=== PATIENT | female | born 2000 | race Two or more races ===

== ENCOUNTER 2024-08-12 16:04 | Emergency (ER) | payer BC ==
[~2024-08-12] VITALS: Ht 162.6 cm; Wt 65.0 kg
[2024-08-12 16:06] VITALS: BP 159/82; PULSE 60; RESP 18; TEMP 36.9; O2SAT 99
[2024-08-12] MEDS ORDERED: LACTATED RINGERS 1,000 ML IV SCH (16:45)
[2024-08-12] MEDS ORDERED: METOCLOPRAMIDE HCL 10MG/2ML VIAL IV ONE (16:45)
== END 2024-08-12 20:00 | disposition left against medical advice (07) ==
LOC: ER 16:04
DX: K92.0 Hematemesis (principal); R19.7 Diarrhea, unspecified; G40.909 Epilepsy, unspecified, not intractable, without status epilepticus
CPT/HCPCS: 99291

== ENCOUNTER 2024-08-22 08:05 | Emergency (ER) | payer BC ==
[~2024-08-22] VITALS: Ht 162.6 cm; Wt 82.0 kg
[2024-08-22 08:16] VITALS: TEMP 36.8; O2SAT 98
[2024-08-22 08:19] VITALS: O2SAT 100
[2024-08-22 09:01] LABS: HEMATOCRIT. 43.8 % (36.0-48.0); HEMOGLOBIN. 14.4 g/dL (12.0-16.0); MEAN CORPUSCULAR HGB CONC 32.9 g/dL (31.0-37.0); MEAN CORPUSCULAR VOLUME 97.2 fL (81.0-99.0); MEAN PLATELET VOLUME 7.7 fl (7.4-10.4); PLATELET 332 x1000/uL (130-400); RED BLOOD CELL COUNT 4.51 mill/uL (4.2-5.4); RED CELL DISTRIBUTION WIDTH 13.7 % (11.6-14.6); WHITE BLOOD COUNT 6.7 x1000/uL (4.5-11.0)
[2024-08-22 09:04] LABS: DIFFERENTIAL COMMENT 1
[2024-08-22 09:10] LABS: CHLORIDE 107 mEq/L (98-107); POTASSIUM 4.5 mEq/L (3.5-5.1); SODIUM 138 mEq/L (136-145)
[2024-08-22 09:11] LABS: CALCIUM 9.5 mg/dL (8.7-10.4); CARBON DIOXIDE 23 mEq/L (21-32)
[2024-08-22 09:16] LABS: CREATININE 0.7 mg/dL (0.6-1.0); GLUCOSE 99 mg/dL (70-105); UREA NITROGEN BLOOD 9 mg/dL (9-23)
[2024-08-22 09:28] LABS: CLARITY URINE CLOUDY (CLEAR); COLOR URINE YELLOW (YELLOW); GLUCOSE URINE NEGATIVE (NEGATIVE); KETONES URINE NEGATIVE (NEGATIVE); LEUKOCYTE ESTERASE URINE 2+ (NEGATIVE); NITRITE URINE NEGATIVE (NEGATIVE); OCCULT BLOOD URINE NEGATIVE (NEGATIVE); PH URINE 6.5 (4.5-8.0); PROTEIN URINE NEGATIVE (NEGATIVE); SPECIFIC GRAVITY URINE 1.018 (1.005-1.030); UROBILINOGEN URINE 0.2 E.U./dL (0.2-1.0)
[2024-08-22 09:31] VITALS: BP 135/59; PULSE 89; RESP 18
[2024-08-22] MEDS: IBUPROFEN 600MG TABLET PO NR (09:31)
[2024-08-22] MEDS ORDERED: IBUP-2030 MT (09:38)
[2024-08-22 09:51] LABS: BACTERIA URINE 1+; RBC URINE 0-2 /hpf (0-2); SQUAMOUS EPITHELIAL CELL URINE 3+ /lpf (RARE/1+); YEAST URINE NONE SEEN
[2024-08-22 21:58] LABS: PLATELET ESTIMATE NORMAL
== END 2024-08-22 09:52 | disposition home or self-care (01) ==
LOC: ER 08:05
DX: M25.572 Pain in left ankle and joints of left foot (principal); M79.621 Pain in right upper arm; G40.909 Epilepsy, unspecified, not intractable, without status epilepticus; F12.90 Cannabis use, unspecified, uncomplicated
CPT/HCPCS: 36415; 73610; 80048; 81003; 85025; 99291

== ENCOUNTER 2024-11-14 12:21 | Emergency (ER) | payer BC ==
[~2024-11-14] VITALS: Ht 160 cm; Wt 68.0 kg
[~2024-11-14 12:21] MED LIST: IBUP-2030 MT
[2024-11-14 12:24] VITALS: BP 127/76; TEMP 36.8; O2SAT 100
[2024-11-14 12:25] VITALS: PULSE 83; RESP 14; O2SAT 99
[2024-11-14] MEDS ORDERED: DOXY100C5 MT ×2 (12:58→14:34)
[2024-11-14 13:15] LABS: CLARITY URINE CLOUDY (CLEAR); COLOR URINE YELLOW (YELLOW); GLUCOSE URINE NEGATIVE (NEGATIVE); KETONES URINE NEGATIVE (NEGATIVE); LEUKOCYTE ESTERASE URINE 2+ (NEGATIVE); NITRITE URINE NEGATIVE (NEGATIVE); OCCULT BLOOD URINE NEGATIVE (NEGATIVE); PH URINE 7.5 (4.5-8.0); PROTEIN URINE NEGATIVE (NEGATIVE); SPECIFIC GRAVITY URINE 1.015 (1.005-1.030); UROBILINOGEN URINE 0.2 E.U./dL (0.2-1.0)
[2024-11-14] MEDS ORDERED: LIDOCAINE HCL 1% 20ML VIAL INFIL NR (13:23)
[2024-11-14] MEDS: CEFTRIAXONE SODIUM 1G VIAL IM ONE (13:26)
[2024-11-14] MEDS: LIDOCAINE HCL 1% 20ML VIAL INFIL NR (13:27)
[2024-11-14 13:33] LABS: RBC URINE 0-2 /hpf (0-2); SQUAMOUS EPITHELIAL CELL URINE 2+ /lpf (RARE/1+)
[2024-11-14 13:34] LABS: BACTERIA URINE 3+
[2024-11-14] MEDS ORDERED: METR-167 MT (14:34)
== END 2024-11-14 14:33 | disposition left against medical advice (07) ==
LOC: ER 12:21
DX: N89.8 Other specified noninflammatory disorders of vagina (principal); F12.10 Cannabis abuse, uncomplicated
CPT/HCPCS: 87491; 87591; 81003; 81025; 87086; 87210; 96372; 99283; J0696; J3490; Z7610

== ENCOUNTER 2025-01-08 01:54 | Emergency (ER) | payer BC ==
[~2025-01-08] VITALS: Ht 158.8 cm; Wt 80.4 kg
[~2025-01-08 01:54] MED LIST changes: +DOXY100C5 MT; +METR-167 MT
[2025-01-08 01:58] VITALS: O2SAT 99
[2025-01-08 02:02] VITALS: BP 117/73; PULSE 95; RESP 16; TEMP 37; O2SAT 98
== END 2025-01-08 03:33 | disposition left against medical advice (07) ==
LOC: ER 01:54
DX: M79.671 Pain in right foot (principal); F12.90 Cannabis use, unspecified, uncomplicated
CPT/HCPCS: 73630; 99283

== ENCOUNTER 2025-03-03 01:32 | Emergency (ER) | payer BC ==
[~2025-03-03] VITALS: Ht 162.6 cm; Wt 59.0 kg
[2025-03-03 01:34] VITALS: O2SAT 96
[2025-03-03 01:35] VITALS: BP 121/76; PULSE 92; RESP 18; TEMP 36.8; O2SAT 99
== END 2025-03-03 02:44 | disposition left against medical advice (07) ==
LOC: ER 01:32
DX: R07.9 Chest pain, unspecified (principal); Z53.21 Procedure and treatment not carried out due to patient leaving prior to being seen by health care provider
CPT/HCPCS: 71045; 81025; 93005

== ENCOUNTER 2025-03-04 22:30 | Emergency (ER) | payer BC ==
[~2025-03-04] VITALS: Ht 157.5 cm; Wt 55.9 kg
[2025-03-04 22:31] VITALS: PULSE 91; RESP 16; O2SAT 97
[2025-03-04 22:35] VITALS: BP 139/82; TEMP 36.7; O2SAT 96
[2025-03-05] MEDS ORDERED: METH-653 MT (00:10)
[2025-03-05] MEDS ORDERED: NAPR-1176 MT (00:10)
== END 2025-03-05 00:33 | disposition home or self-care (01) ==
LOC: ER 22:30
DX: R07.9 Chest pain, unspecified (principal); R09.1 Pleurisy; F12.90 Cannabis use, unspecified, uncomplicated; Z79.899 Other long term (current) drug therapy
CPT/HCPCS: 71045; 93005; 99283

== ENCOUNTER 2025-04-13 15:30 | Emergency (ER) | payer BC ==
[~2025-04-13] VITALS: Ht 165.1 cm; Wt 82.0 kg
[~2025-04-13 15:30] MED LIST changes: +METH-653 MT; +NAPR-1176 MT
[2025-04-13 15:39] VITALS: O2SAT 100
[2025-04-13] MEDS ORDERED: AMOX1TAB16 MT (20:25)
[2025-04-13 20:46] VITALS: BP 167/103; PULSE 79; RESP 15; TEMP 36.8; O2SAT 97
== END 2025-04-13 20:46 | disposition home or self-care (01) ==
LOC: ER 15:30
DX: S81.851A Open bite, right lower leg, initial encounter (principal); Z55.6 Problems related to health literacy; Z79.1 Long term (current) use of non-steroidal anti-inflammatories (NSAID); W54.0XXA Bitten by dog, initial encounter; Y93.89 Activity, other specified; Y92.89 Other specified places as the place of occurrence of the external cause; Y99.8 Other external cause status
CPT/HCPCS: 81025; 93971; 99284

== ENCOUNTER 2025-06-25 20:58 | Emergency (ER) | payer BC ==
[~2025-06-25 20:58] MED LIST changes: +AMOX1TAB16 MT
[2025-06-25 21:01] VITALS: PULSE 99; RESP 16; O2SAT 95
== END 2025-06-25 21:54 | disposition left against medical advice (07) ==
LOC: ER 20:58
DX: K13.79 Other lesions of oral mucosa (principal); Z53.21 Procedure and treatment not carried out due to patient leaving prior to being seen by health care provider
CPT/HCPCS: 99281